=== PATIENT | male | born 1960 | race Caucasian/White ===

== ENCOUNTER 2018-07-30 09:25 | Day surgery (SDC) | payer OTHER ==
[~2018-07-30] VITALS: Ht 185.4 cm; Wt 83.9 kg
[2018-07-30] MEDS ORDERED: GABA-533 PO (10:08)
[2018-07-30] MEDS ORDERED: INSU100I24 SQ (10:08)
[2018-07-30] MEDS ORDERED: BISO5TAB13 MT (10:08)
[2018-07-30] MEDS ORDERED: TAMS0.4C31 MT (10:08)
[2018-07-30] MEDS ORDERED: GEMF600T4 MT (10:08)
[2018-07-30] MEDS ORDERED: NITR0.4T49 SL (10:08)
[2018-07-30] MEDS ORDERED: FINA5TAB11 MT (10:08)
[2018-07-30] MEDS ORDERED: CLOP75TA16 MT (10:08)
[2018-07-30] MEDS ORDERED: ATOR20TA65 MT (10:08)
[2018-07-30] MEDS ORDERED: LEVO125T8 MT (10:08)
[2018-07-30 10:15] LABS: HEMATOCRIT 40.9 % (42.0-52.0); HEMOGLOBIN 13.5 g/dL (14.0-18.0); MEAN CORPUSCULAR VOLUME 93.6 fL (80.0-94.0); PLATELET 225 x1000/uL (130-400); RED BLOOD CELL COUNT 4.37 mill/uL (4.7-6.1); RED CELL DISTRIBUTION WIDTH 13.6 % (11.6-14.6)
[2018-07-30 10:27] LABS: INR 1.1; PROTHROMBIN TIME 11.3 sec (9.6-11.0)
[2018-07-30 10:47] LABS: CHLORIDE 109 mEq/L (98-107)
[2018-07-30] MEDS ORDERED: IODIXANOL 320MG/ML 100 ML BOTTLE IV ONE ×2 (11:37→12:14)
[2018-07-30] MEDS ORDERED: LIDOCAINE HCL 1% 20ML VIAL (Pyxis) INJ ONE (11:37)
[2018-07-30] MEDS ORDERED: MIDAZOLAM HCL 2 MG/2 ML VIAL ONE (11:43)
[2018-07-30] MEDS ORDERED: FENTANYL CITRATE/PF 50MCG/ML 2ML VIAL ONE (11:43)
[2018-07-30] MEDS ORDERED: ONDANSETRON HCL 4MG/2ML INJ IV PRN (12:30)
[2018-07-30] MEDS ORDERED: MORPHINE SULFATE 4 MG/ML CPJ (NOT FOR IM USE) IV PRN (12:30)
[2018-07-30] MEDS ORDERED: ACETAMINOPHEN 325MG TABLET PO PRN (12:30)
== END 2018-07-30 16:20 | disposition home or self-care (01) ==
LOC: CCL 09:25
PROVIDERS: ATTEND Internal Medicine Cardiovascular Disease
DX: R07.9 Chest pain, unspecified (principal); R06.02 Shortness of breath; R94.39 Abnormal result of other cardiovascular function study; I25.10 Atherosclerotic heart disease of native coronary artery without angina pectoris; Z95.1 Presence of aortocoronary bypass graft; Z79.899 Other long term (current) drug therapy; Z79.4 Long term (current) use of insulin
CPT/HCPCS: 36415; 80048; 85027; 85610; 85730; 93005; 93459; 99152; C1760; C1769; C1887; C1893; J1644; J2250; J3010; J3490; Q9967; G0500